=== PATIENT | male | born 1985 | race Caucasian/White ===

== ENCOUNTER 2016-12-11 17:27 | Emergency (ER) | payer BC ==
--- NOTE | ~2016-12-11 | CR150 ---
[facility]. [facility] A Service of [facility] & [facility] RADIOLOGY TEXT RESULTS PATIENT: RADHA BUTLER LOCATION: SED : [birth year] UNIT #: [id number] AGE: [address]: REDD CHEATHAM SEX: M ORDER DR: [id number] [address] [address] [id number] E MR#: [id number] #: [id number] NAME: RADHA BUTLER : 1985 SEX: M STUDY DATE/TIME: 12/11/2016 18:19 UNIT: SED ROOM: STUDY DESCRIPTION: CR Hip Min 2 Views Lt Attending Physician: Redd Cheatham Ordering Physician: Physician Non-Staff Primary Care Physician: No Primary Care Physician MEDICAL IMAGING REPORT This report is preliminary unless electronic signature is present. EXAM Left hip 12/11/2016. HISTORY 31-year-old male with left hip pain for 1 month. No specific injury. COMPARISON None. FINDINGS Two views of the left hip demonstrate no acute fracture or dislocation. Joint spaces are maintained. Bony pelvis, sacrum, and SI joints intact. Soft tissues are unremarkable. IMPRESSION Unremarkable left hip. Dictated by... Arcadio Copeland M.D. THIS IS AN ELECTRONICALLY VERIFIED REPORT Arcadio Copeland M.D. at 12/12/2016 2:40 PM RETA/genoveva TD: 12/12/2016 07:10 JOB #: [id number] MEDICAL IMAGING REPORT Page 1 of 1
== END 2016-12-11 20:07 | disposition home or self-care (01) ==
LOC: SED 17:27
DX: M79.652 Pain in left thigh (principal)
CPT/HCPCS: 73502; 96372; 99283; J1885